=== PATIENT | female | born 1960 | race Caucasian/White ===

== ENCOUNTER → 2020-10-27 12:30 | Outpatient (CLI) | payer BC, SELFPAY ==
--- NOTE | ~2020-10-27 | MM_ITS ---
EXAMINATION: MM screening yuri BI w sadia HISTORY: Screening mammogram TECHNIQUE: Craniocaudal and mediolateral oblique 3-D tomosynthesis images were obtained and synthetic 2-D images were generated. CAD analysis was submitted and interpreted. COMPARISON: 03/05/2019, 02/13/2018, 02/02/2017 BREAST PARENCHYMAL COMPOSITION: There are scattered areas of fibroglandular density. FINDINGS: There is chronic focal asymmetry in the upper outer quadrant of the left breast. There is n o evidence of suspicious mass, calcification, or architectural distortion to suggest malignancy in ei ther breast. There has been no suspicious interval change. IMPRESSION: 1. No mammographic evidence of malignancy. 2. Recommend routine screening mammography in one year. BI-RADS Category 2: Benign finding(s). Reviewed, dictated and finalized at location A. ON [employer] [employer]
--- NOTE | ~2020-10-27 | DEXA_ITS ---
Bone Density Report Name: Summer Ge Age: 60 Sex: Female Ethnicity: White Date of : 1960 Indication: monitoring treatment; inflammatory bowel disease; hysterectomy; postmenopausal Referring Provider: WILD, MANOHAR Study: Bone densitometry was performed. Exam Date: October 27, 2020 Accession number: [id number] Bone Density: Region BMD T-score Z-score Classification AP Spine (L1-L4) 0.982 -0.6 0.7 Normal Femoral Neck (Left) 0.695 -1.4 -0.2 Osteopenia Total Hip (Left) 0.920 -0.2 0.7 Normal Femoral Neck (Right) 0.683 -1.5 -0.3 Osteopenia Total Hip (Right) 0.922 -0.2 0.7 Normal Total Hip Mean 0.921 -0.2 0.7 Normal World Health Organization criteria for BMD impression classify patients as: Normal (T-score at or above -1.0), Osteopenia (T-score between -1.0 and -2.5), or Osteoporosis (T-score at or below -2.5). 10-year Fracture Risk: FRAX not reported because: Treated for osteoporosis Previous Exams: Region Exam Age BMD T-score BMD Change BMD Change Date g/cm2 vs Baseline vs Previous AP Spine(L1-L4) 10/27/2020 60 0.982 -0.6 -0.025* 0.004 01/16/2017 56 0.979 -0.6 -0.028* -0.003 06/03/2013 53 0.981 -0.6 -0.026* 0.003 11/30/2010 50 0.979 -0.6 -0.028* 0.001 10/04/2009 49 0.978 -0.6 -0.029* -0.029* 03/01/2007 46 1.007 -0.4 Total Hip(Left) 10/27/2020 60 0.920 -0.2 -0.044* -0.042* 01/16/2017 56 0.962 0.2 -0.003 -0.067* 06/03/2013 53 1.028 0.7 0.064* 0.034* 11/30/2010 50 0.994 0.4 0.030* 0.018 10/04/2009 49 0.976 0.3 0.011 0.011 03/01/2007 46 0.964 0.2 Total Hip(Right) 10/27/2020 60 0.922 -0.2 -0.050* -0.026 01/16/2017 56 0.947 0.0 -0.025 -0.006 06/03/2013 53 0.953 0.1 -0.019 0.042* 11/30/2010 50 0.912 -0.2 -0.060* 0.001 10/04/2009 49 0.911 -0.3 -0.061* -0.061* 03/01/2007 46 0.972 0.2 *Denotes significance at 95% confidence level, LSC for AP Spine = 0.022 g/cm2, LSC for Total Hip = 0.027 g/cm2 Clinical Information Provided by Patient: Is being treated for osteoporosis Has used the following medications: HRT (i.e. estrogen/hormone therapy), Vitamin D, MTV Has the following medical conditions: Inflammatory bowel diseases, Hysterectomy Patient max
== END ==
PROVIDERS: PCP Family Medicine; Visit Provider Nurse Practitioner
DX: Z12.31 Encounter for screening mammogram for malignant neoplasm of breast (principal); Z78.0 Asymptomatic menopausal state; M85.852 Other specified disorders of bone density and structure, left thigh; M85.851 Other specified disorders of bone density and structure, right thigh
CPT/HCPCS: 77063; 77067; 77080

== ENCOUNTER → 2022-02-17 02:11 | Outpatient (CLI) | payer BC, SELFPAY ==
[2022-02-17 16:40] LABS: SARS-CoV-2 RNA PCR Negative
== END ==
PROVIDERS: PCP Physician Assistant; Visit Provider Physician Assistant
DX: R42 Dizziness and giddiness (principal); H92.09 Otalgia, unspecified ear; R68.89 Other general symptoms and signs; Z20.822 Contact with and (suspected) exposure to COVID-19
CPT/HCPCS: C9803; U0003; U0005

== ENCOUNTER → 2022-05-11 11:34 | Outpatient (CLI) | payer BC, SELFPAY ==
--- NOTE | ~2022-05-11 | MM_ITS ---
EXAMINATION: MM screening yuri BI w sadia HISTORY: Screening TECHNIQUE: Craniocaudal and mediolateral oblique 3-D tomosynthesis images were obtained and synthetic 2-D images were generated. CAD analysis was submitted and interpreted. COMPARISON: Comparison to multiple prior studies sequentially, with oldest reviewed study dated 01/2016. BREAST PARENCHYMAL COMPOSITION: There are scattered areas of fibroglandular density. FINDINGS: Stable nodular asymmetries bilaterally. No new masses, calcifications or architectural dist ortion to suggest malignancy. There is no evidence of suspicious mass, calcification, or architectura l distortion to suggest malignancy in either breast. There has been no suspicious interval change. IMPRESSION: 1. No mammographic evidence of malignancy. 2. Recommend routine screening mammography in one year. BI-RADS Category 2: Benign finding(s). Reviewed, dictated and finalized at location A.
== END ==
PROVIDERS: PCP Family Medicine; Visit Provider Obstetrics & Gynecology Gynecology
DX: Z12.31 Encounter for screening mammogram for malignant neoplasm of breast (principal)
CPT/HCPCS: 77063; 77067